=== PATIENT | male | born 1955 | race Caucasian/White ===

== ENCOUNTER → 2016-09-24 | Outpatient (CLI) | payer BC ==
[2016-09-24 09:48] LABS: Aty Lym Flag Slight; CH 30.6; CHCM 33.7; HCT 42.9 % (39.0-53.0); HDW 2.55; MCH 29.8 pg (25.0-35.0); MCHC 32.8 g/dL (31.0-37.0); MCV 91.1 fL (80.0-100.0); Mean Platelet Volume 7.2; RBC 4.71 m/uL (4.30-5.90); RDW 13.3 % (11.5-15.5); WBC (Perox) 6.11
[2016-09-24 10:10] LABS: Anion Gap 15 mmol/L; Blood Urea Nitrogen 13 mg/dL (9-20); Calcium 9.5 mg/dL (8.4-10.2); Carbon Dioxide 28 mmol/L (22-30); Chloride 100 mmol/L (98-107); Glucose 99 mg/dL (74-99); Non-African American GFR(MDRD) >60 (>60 ml/min/1.73 sqM); Potassium 3.9 mmol/L (3.5-5.1); Sodium 143 mmol/L (137-145)
[2016-09-24 10:24] LABS: Add Differential Manual Differential
[2016-09-24 10:28] LABS: Nucleated Red Blood Cells 0 /100 WBC (0-0); Total Cells Counted 100
[2016-09-24 10:29] LABS: Manual Review Performed
== END | disposition home or self-care (01) ==
LOC: LABPAT 08:45
PROVIDERS: ATTEND Urology
DX: Z01.812 Encounter for preprocedural laboratory examination (principal); C61 Malignant neoplasm of prostate; E78.00 Pure hypercholesterolemia, unspecified; R35.0 Frequency of micturition; R53.83 Other fatigue
CPT/HCPCS: 36415; 80048; 85025; 87086

== ENCOUNTER 2016-10-01 06:05 | Inpatient (IN) | payer BC ==
[2016-09-30 08:21] VITALS: BMI 34.8
[~2016-10-01 06:05] MED LIST: DEXAMETHASONE SOD PHOSPHATE 10 MG/ML 1 ML VIAL IV ONE; MIDAZOLAM 2 MG/2 ML VIAL IV PRN; ONDANSETRON 4 MG/2 ML VIAL IVP ONE; SCOPOLAMINE 1.5MG/72HR PATCH TRANSDERM ONE; ceFAZolin 2 GM in SODIUM CHLORIDE 0.9% 100 ML IVPB ONE
[2016-10-01] MEDS ORDERED: LIDOCAINE 1% 20 ML VIAL (10MG/ML) FOR IV START INTRADERMA ONE ×2 (06:22→06:23)
[2016-10-01] MEDS: LACTATED RINGERS 1,000 ML IV SCH (06:22)
[2016-10-01] MEDS ORDERED: SUCCINYLCHOLINE CHLORIDE 100 MG/5 ML SYR IV ONE (07:38)
[2016-10-01] MEDS ORDERED: fentaNYL (PF) 50 MCG/ML 2 ML AMP ONE (07:38)
[2016-10-01] MEDS ORDERED: NEOSTIGMINE 1 MG/ML 10 ML VIAL ONE (07:38)
[2016-10-01] MEDS ORDERED: ePHEDrine 50 MG/ML 1 ML AMP ONE (07:38)
[2016-10-01] MEDS ORDERED: PROPOFOL 10 MG/ML 20 ML VIAL IV ONE (07:38)
[2016-10-01] MEDS ORDERED: LIDOCAINE 1% INJ 10MG/ML (20 ML MDV) ONE (07:38)
[2016-10-01] MEDS ORDERED: ROCURONIUM BROMIDE 10 MG/ML 10 ML VIAL IV ONE (07:38)
[2016-10-01] MEDS ORDERED: HEPARIN SODIUM,PORCINE 5,000 UNIT/ML 1 ML VIAL ONE (07:38)
[2016-10-01] MEDS ORDERED: GLYCOPYRROLATE 0.2 MG/ML 2 ML VIAL ONE (07:38)
[2016-10-01] MEDS ORDERED: ceFAZolin 1,000 MG VIAL ONE (07:38)
[2016-10-01] MEDS ORDERED: HYDROmorphone (PF) 1 MG/ML ONE (07:38)
[2016-10-01] MEDS ORDERED: MIDAZOLAM 2 MG/2 ML VIAL ONE (07:38)
[2016-10-01] MEDS ORDERED: BUPIVACAINE (PF) 0.25% 30 ML VIAL SQ ONE (08:51)
[2016-10-01] MEDS ORDERED: LACTATED RINGERS 1,000 ML IV ONE ×2 (10:31)
[2016-10-01] MEDS ORDERED: ONDANSETRON 4 MG/2 ML VIAL IVP PRN (13:35)
[2016-10-01] MEDS ORDERED: ACETAMINOPHEN TAB 325 MG TAB PO PRN (13:35)
[2016-10-01] MEDS ORDERED: HYDROmorphone 1 MG/ML 1 ML SYRINGE IVP PRN (13:36)
[2016-10-01] MEDS: HYDROmorphone 1 MG/ML 1 ML SYRINGE IVP PRN ×2 (14:15→14:25)
[2016-10-01] MEDS: KETOROLAC 30 MG/ML 1 ML VIAL IVP PRN ×3 (14:16→23:00)
--- NOTE | 2016-10-01 14:55 | P.OP ---
Date of Procedure: 10/01/16 Preoperative Diagnosis: Adenocarcinoma of the Prostate, Clinical Stage T2a Nx M0 Postoperative Diagnosis: Same Procedure(s) Performed: Right Nerve Sparing Robotic-assisted Laparoscopic Prostatectomy With Bilateral Pelvic Lymphadenectomy Anesthesia: STALIN Surgeon: Luis Hutton Estimated Blood Loss (ml): 350 IV fluids (ml): 1,900 Pathology: other (Prostate, seminal vesicles, bilateral pelvic lymph nodes) Condition: stable Disposition: PACU Indications for Procedure: He is a 60-year-old male with a family history of prostate cancer. His PSA level has been increasing over the past several years and was most recently 7.612. SP reveals subtle firmness at the left prostatic base, and 5 of 6 left- sided biopsies show [place] 6-7 adenocarcinoma. Alternative treatment options were reviewed in detail, and he has elected to undergo a right nerve-sparing RALP. Operative Findings: No evidence of extraprostatic disease. Description of Procedure: The patient was taken in the operating room and placed in the dorsal lithotomy position, with his legs supported in New stirrups. He was carefully positioned on a beanbag for stability. The abdomen and external genitalia were prepped and draped sterilely. A Price catheter was inserted. The Veress needle was passed through the anterior abdominal wall immediately cephalad to the umbilicus, and insufflation was performed to a pressure of 20 mm Hg. Once insufflation was performed, the Veress needle was removed and a supraumbilical incision was made, through which a 12 mm camera port was placed. Under camera guidance, 3 8 mm robotic ports were placed, 2 on the left and one on the right. An additional 12 mm port was placed on the right lateral side for use as an assistant spa manager port. A 5 mm port was placed to the right of the camera port for suction. The patient was placed in Trendelenburg position, and docking was then performed to the da Lotus system utilizing a 4-arm approach. The abdomen was examined. The sigmoid colon was mobilized out of the pelvis. The peritoneum was incised lateral to the medial umbilical ligaments bilaterally , exposing the pubis. The peritoneum was then incised across the midline, allowing the bladder flap to be taken down. The endopelvic fascia was opened bilaterally, and muscular attachments from the urogenital diaphragm were swept away from the prostate. Bilateral pelvic lymphadenectomies were performed in the standard fashion. The peritoneal incisions were extended in a cephalad direction, and the vas deferens were divided bilaterally. Margins of dissection were the bifurcation of the iliac vessels proximally, the circumflex iliac vein distally, the external iliac artery laterally, and the obturator nerve medially. A combination of sharp and blunt dissection was used. Care was taken to avoid any neurovascular injury, and the use of monopolar electrocautery was avoided immediately adjacent to neurovascular structures. The lymphatic package was clipped distally. No enlarged lymph nodes were encountered. There were no complications. The vesical neck was incised transversely, down to the lumen. The Price catheter was brought out through the anterior vesical neck incision and was used for traction. The posterior aspect of the vesical neck was incised, such that the full-thickness of the vesical neck was divided. The anterior layer of the Denonvilliers fascia was incised, exposing the vas deferens. Each were isolated and divided. Next, each of the seminal vesicles were dissected away from adjacent tissues, and vascular attachments were cauterized and divided. The posterior leaf of Denonvilliers fascia was incised transversely, allowing entry into the plane between the prostate and rectum. With lateral spreading, this plane was developed down to the apex. This exposed the lateral vascular pedicles bilaterally. These were clipped and divided in an antegrade fashion, down to the apex. The use of electrocautery was avoided on the right to prevent thermal damage to the nerves. A nerve sparing procedure was not performed on the left, as the plane of dissection was away from the prostate allowing the removal of a small amount of periprostatic tissue. On the right side, a "Veil of Aphrodite" nerve-sparing technique was performed. The remaining apical attachments were swept away from the prostate. The dorsal venous complex was incised, as well as periurethral tissue. Bleeding ensued from a sinus to the right of the midline, limiting visualization. Therefore, the dorsal venous complex was sutured using a V-Loc suture in a running fashion. Excellent hemostasis was achieved, and the remainder of the apical dissection was completed. At this point, only the urethra remained intact. This was transected immediately distal to the prostatic apex using cold scissors. The specimen was placed within a specimen bag. A V-Loc suture was then used to place the Zaki stitch, incorporating the rhabdosphincter and the edge of Denonvilliers fascia. This allowed the bladder to be taken down to the urethra, leaving the vesical neck immediately adjacent to the urethra. The vesicourethral anastomosis was then performed using a V- Loc suture in a running fashion. After completing the anastomosis, an 18- [place] Price catheter was placed and approximately 150 mL of 0.9 normal saline were instilled into the bladder. No extravasation of irrigant from the vesicourethral anastomosis was noted. Hemostasis was noted at this time to be excellent, and it was thus felt that a drain was unnecessary. The patient was returned to the supine position. Undocking was performed, and the specimen bag sutures were passed through the camera port. After removing all the ports and allowing all of the CO2 to be released from the peritoneal cavity, the camera port incision was enlarged to allow removal of the surgical specimen. The fascia of this incision was then closed using 0 Vicryl suture in an interrupted [id number] fashion. The fascia of the 12 mm assistant spa manager port was closed using 0 Vicryl suture. Each of the skin incisions were then closed using 4-0 Monocryl suture in a subcuticular fashion. Marcaine was injected at each of the incision sites. Dermabond was applied to each incision. The Price catheter was connected to gravity drainage. All sponge and needle counts were correct. The patient tolerated the procedure well was taken to the recovery room in stable condition.
[2016-10-01] MEDS: DEXTROSE 5%-0.45% NACL 1,000 ML IV SCH ×2 (15:37→23:00)
[2016-10-01 18:08] VITALS: RESP 16
[2016-10-01] MEDS ORDERED: HYDROCHLOROTHIAZIDE 12.5 MG CAP PO SCH (21:00)
[2016-10-01] MEDS ORDERED: LISINOPRIL 10 MG TAB PO SCH (21:00)
[2016-10-01] MEDS ORDERED: ATORVASTATIN 20 MG TAB PO SCH (21:00)
[2016-10-01] MEDS: HEPARIN SODIUM,PORCINE 5,000 UNIT/ML 1 ML VIAL SQ SCH (21:19)
[2016-10-02] MEDS: LACTATED RINGERS 1,000 ML IV SCH (01:20)
[2016-10-02] MEDS ORDERED: CYCLOBENZAPRINE 10 MG TAB PO PRN (01:33)
[2016-10-02 03:30] VITALS: BP 144/73; PULSE 83; TEMP 97
[2016-10-02] MEDS: DEXTROSE 5%-0.45% NACL 1,000 ML IV SCH (05:09)
[2016-10-02] MEDS: KETOROLAC 30 MG/ML 1 ML VIAL IVP PRN (05:09)
[2016-10-02] MEDS: HEPARIN SODIUM,PORCINE 5,000 UNIT/ML 1 ML VIAL SQ SCH (07:23)
--- NOTE | 2016-10-02 10:07 | P.DS ---
Providers Date of admission: 10/01/16 13:35 Attending physician: Luis Hutton Primary care physician: [facility] Course: The patient was brought into the hospital on 10/01/2016 for a robotic-assisted radical prostatectomy. He underwent this without difficulty. He had a lot of back and leg spasms overnight but they subsided with Flexeril. This morning he feels much better. He is ambulated. He is eating. His wound looks good. His urine is clear. Wishes to be discharged home. He'll be discharged home care of his family regular diet limited activity. He'll go home with [facility]. He'll follow-up in the office Patient Condition at Discharge: Good Plan - Discharge Summary New Discharge Prescriptions: Cyclobenzaprine [Flexeril] 10 mg PO TID PRN #10 tab PRN Reason: Spasms Hydrocodone/Acetaminophen [[place] 7.5-325] 1 each PO Q4HR PRN #20 tab PRN Reason: Pain Control Discharge Medication List Aspirin [Adult Low Dose Aspirin EC] 81 mg PO DAILY 09/30/16 [History] Atorvastatin [Lipitor] 20 mg PO HS 09/30/16 [History] Benazepril/Hydrochlorothiazide [Benazepril-Hctz 10-12.5 mg Tab] 1 tab PO HS [History] Cyclobenzaprine [Flexeril] 10 mg PO TID PRN #10 tab 10/02/16 [Rx] Hydrocodone/Acetaminophen [[place] 7.5-325] 1 each PO Q4HR PRN #20 tab 10/02/16 [ Rx] Follow up Appointment(s)/Referral(s): Luis Hutton MD [STAFF PHYSICIAN] - 1 Week Activity/Diet/Wound Care/Special Instructions: home with [facility], leg and overnite bag. may shower resume home meds Discharge Disposition: HOME SELF-CARE
== END 2016-10-02 12:23 | disposition home or self-care (01) | DRG 708 ==
LOC: OR 06:05 → 3SUR 13:35
PROVIDERS: ADMIT Urology; ATTEND Urology
PROC: 07BC4ZZ Excision of Pelvis Lymphatic, Percutaneous Endoscopic Approach (ICD-10-PCS; 2016-10-01)
PROC: 0VT04ZZ Resection of Prostate, Percutaneous Endoscopic Approach (ICD-10-PCS; principal; 2016-10-01 07:30)
DX: C61 Malignant neoplasm of prostate (principal); Z80.42 Family history of malignant neoplasm of prostate; E78.00 Pure hypercholesterolemia, unspecified; Z79.82 Long term (current) use of aspirin; Z79.899 Other long term (current) drug therapy
CPT/HCPCS: 36415; 80048; 85025; 86850; 86900; 86901; 87086; 88307; 88309

== ENCOUNTER → 2017-03-25 | Outpatient (CLI) | payer BC ==
--- NOTE | 2017-03-25 09:18 | US ---
EXAMINATION TYPE: US liver DATE OF EXAM: 03/25/2017 COMPARISON: NONE CLINICAL HISTORY: R79.89 Other Abnormal Blood Chemistry, R50.9 Fever. Patient stated has had fever x 9 days; is on hormone replacement therapy for prostate CA diagnosed this year EXAM MEASUREMENTS: Liver Length: 18.2 cm Gallbladder Wall: 0.2 cm CBD: 0.6 cm Right Kidney: 12.7 x 6.6 x 5.3 cm Pancreas: hyperechoic with mid and tail obscured by overlying bowel gas Liver: hyperechoic/ fatty and enlarged Gallbladder: wnl Evidence for sonographic Hope's sign: No CBD: wnl Right Kidney: wnl IMPRESSION: 1. Mild fatty infiltration liver with mild hepatomegaly.
== END ==
LOC: RADUSWWP 07:42
PROVIDERS: ATTEND Internal Medicine
DX: K76.0 Fatty (change of) liver, not elsewhere classified (principal); R16.0 Hepatomegaly, not elsewhere classified
CPT/HCPCS: 76705

== ENCOUNTER → 2017-03-31 | Outpatient (CLI) | payer BC ==
--- NOTE | 2017-03-31 10:33 | XR ---
EXAMINATION TYPE: XR thoracic spine complete DATE OF EXAM: 03/31/2017 CLINICAL HISTORY: Fall with mid back pain. TECHNIQUE: Frontal, lateral, and swimmer's view of thoracic spine are obtained. COMPARISON: None. FINDINGS: Thoracic spine show satisfactory alignment without evidence of acute fracture or dislocatio n. Vertebral body heights and disc space heights are preserved. Visualized ribs are unremarkable. Mild degenerative changes are seen throughout the entirety of the lumbar spine demonstrated as interv ertebral disc space narrowing, endplate sclerosis and small anterior osteophytes. IMPRESSION: No acute fracture or malalignment is seen in the thoracic spine.
--- NOTE | 2017-03-31 10:35 | XR ---
EXAMINATION TYPE: XR cervical spine comp DATE OF EXAM: 03/31/2017 TECHNIQUE: Frontal, lateral, oblique, swimmers, and open mouth view of the cervical spine are obtaine d. HISTORY: M54.9 back pain COMPARISON: None FINDINGS: The cervical spine is visualized in its entirety from C1 thru the top of T1 level, it is s atisfactory in alignment without evidence of acute fracture or dislocation. The pre-vertebral soft t issue appears within normal limits. The C1-C2 articulation is within normal limits on the open mouth view. The oblique images are within normal limits. Mild degenerative disc disease of the cervical s pine are seen as well as minimal multilevel uncovertebral hypertrophy, however neuroforamen appear pa tent on the oblique images. IMPRESSION: No acute fracture or dislocation is seen in the cervical spine.
== END | disposition home or self-care (01) ==
LOC: RADXRMAIN 10:07
PROVIDERS: ATTEND Internal Medicine
DX: M54.9 Dorsalgia, unspecified (principal)
CPT/HCPCS: 72050; 72072

== ENCOUNTER → 2017-04-19 | Outpatient (CLI) | payer BC | END | disposition home or self-care (01) | LOC: LABWHC1 09:25 | PROVIDERS: ATTEND Urology | DX: C61 Malignant neoplasm of prostate (principal) | CPT/HCPCS: 36415; 84153; 84403 ==